=== PATIENT | female | born 1960 ===

== ENCOUNTER → 2024-05-09 07:29 | Outpatient (REF) | payer MEDICARE, OTHER, SELFPAY ==
[2024-05-09 08:57] LABS: Hematocrit 42.8 % (37.0-47.0); Hemoglobin 14.6 g/dL (12.0-16.0); Mean Corp Hgb Conc. 34.1 g/dL (33.0-37.0); Mean Corpuscular Hgb 29.6 pg (27.0-31.0); Mean Corpuscular Volume 86.8 fL (81.0-99.0); Mean Platelet Volume 10.1 fL (7.4-10.4); Platelet Count 303 10^3/uL (130-400); Red Blood Cell Count 4.93 10^6/uL (4.20-5.40); Red Cell Dist. Width 12.9 % (11.5-14.5); White Blood Cell Count 5.2 10^3/uL (4.8-10.8)
[2024-05-09 10:09] LABS: Blood Urea Nitrogen 18 mg/dl (7-17); Calcium 9.6 mg/dl (8.4-10.2); Carbon Dioxide 28 mmol/L (22-30); Chloride 104 mmol/L (98-107); Glucose 89 mg/dl (70-99); Potassium 4.1 mmol/L (3.5-5.1); Sodium 143 mmol/L (135-145); eGFR > 60.00
== END ==
LOC: SDSPAT 07:29
PROVIDERS: ATTENDING PHYSICIAN Obstetrics & Gynecology; FAMILY PHYSICIAN Family Medicine
DX: Z01.818 Encounter for other preprocedural examination (principal)
CPT/HCPCS: 36415; 80048; 85027; 86850; 86900; 86901; 93005

== ENCOUNTER 2024-05-15 06:15 | Day surgery (SDC) | payer MEDICARE, OTHER, SELFPAY ==
[2024-05-09 08:58] VITALS: BMI 29.4
[2024-05-15] VITALS (13 sets, daily range): BP systolic 117–157; BP diastolic 69–86; BMI 29.4
[2024-05-15] MEDS: Pyridium 200 MG PO (07:15)
[2024-05-15] MEDS: NORMOSOL-R/PLASMALYTE-A 1000 IV (07:15)
[2024-05-15] MEDS: HEPARIN 5000 UNITS SC (07:15)
[2024-05-15] MEDS: SUBLIMAZE 50 MCG IV (10:55)
[2024-05-15] MEDS: DEMEROL 12.5 MG IV (11:10)
[2024-05-15] MEDS: ROXICODONE 5 MG PO (12:51)
== END 2024-05-15 16:25 | disposition home or self-care (01) ==
LOC: SDS 06:15
PROVIDERS: ATTENDING PHYSICIAN Obstetrics & Gynecology
DX: N81.11 Cystocele, midline (principal); N39.3 Stress incontinence (female) (male); Q27.8 Other specified congenital malformations of peripheral vascular system; D25.1 Intramural leiomyoma of uterus; D25.2 Subserosal leiomyoma of uterus; N80.03 Adenomyosis of the uterus; N83.8 Other noninflammatory disorders of ovary, fallopian tube and broad ligament; D28.7 Benign neoplasm of other specified female genital organs
CPT/HCPCS: 58571; 57260; 57288; 88305; 86900; 86901; 88341; 88342; 88360; C1763; C1771